=== PATIENT | male | born 1990 | race Caucasian/White ===

== ENCOUNTER 2020-10-06 12:39 | Emergency (ER) | payer BC ==
[~2020-10-06] VITALS: Ht 167.6 cm; Wt 77.1 kg
--- NOTE | 2020-10-06 13:12 | NUR ---
PT WAS EVALUATED BY DR FOLEY. PT WAS D/C'd TO HOME. D/C INSTRUCTIONS GIVEN TO THE PT BY DR FOLEY.
[2020-10-06 13:14] VITALS: BP 133/74
== END 2020-10-06 13:15 | disposition home or self-care (01) ==
LOC: ER 12:39
DX: M25.562 Pain in left knee (principal)
CPT/HCPCS: A4663